=== PATIENT | female | born 1965 | race Two or more races ===

== ENCOUNTER 2017-08-09 19:19 | Inpatient (IN) | payer MEDICAID, OTHER ==
[~2017-08-09] VITALS: Ht 147.3 cm; Wt 58.1 kg
--- NOTE | 2017-08-09 19:19 | NUR ---
BRITTANY 102 FROM [facility] FOR MIDSTERNAL CP NONRADIATING S/P SYNCOPAL EPISODE. 162 ASA AND NITRO GIVEN EN ROUTE. VSS NAD A/OX4 ABLE TO MAKE NEEDS KNOWN. WILL CONTINUE TO MONITOR FOR ANY CHANEGS DURING THE SHIFT.
--- NOTE | 2017-08-09 19:20 | NUR ---
ER MD REEVES AT BEDSIDE
--- NOTE | 2017-08-09 19:41 | NUR ---
EKG AT BEDSIDE
[2017-08-09 19:44] LABS: BASOPHILS % (AUTO) 0.7 % (0.0-2.0); HEMATOCRIT 35 % (33-45); HEMOGLOBIN 12.1 g/dL (11.5-14.8); LYMPHOCYTES # (AUTO) 1.9 /CMM (0.8-4.8); LYMPHOCYTES % (AUTO) 39.2 % (20.0-44.0); MEAN CORPUSCULAR HEMOGLOBIN 31 PG (26.0-33.0); MEAN CORPUSCULAR HGB CONC 35 g/dl (31.0-36.0); MEAN CORPUSCULAR VOLUME 88 fL (82-100); MONOCYTES # (AUTO) 0.4 /CMM (0.1-1.30); MONOCYTES % (AUTO) 9.3 % (2.0-12.0); NEUTROPHILS # (AUTO) 2.5 /CMM (1.8-8.9); NEUTROPHILS % (AUTO) 49.8 % (43.0-81.0); PLATELET COUNT (AUTO) 88 /CMM (150-450); RDW COEFFICIENT OF VARIATION 13.9 (11.5-15.0); RED BLOOD CELL COUNT(AUTO) 3.94 MIL/uL (4.0-5.2); WHITE BLOOD COUNT (AUTO) 4.8 K/uL (4.3-11.0)
[2017-08-09 19:59] LABS: CALCIUM, SERUM 8.9 mg/dL (8.5-10.1); CARBON DIOXIDE 29 mmol/L (21-32); CHLORIDE 105 mmol/L (98-107); CREATININE 0.6 mg/dL (0.6-1.3); GLUCOSE 109 mg/dL (74-106); POTASSIUM 3.6 mmol/L (3.5-5.1); SODIUM SERUM 138 mmol/L (136-145); UREA NITROGEN, BLOOD 11 mg/dL (7-18)
[2017-08-09 20:02] LABS: INR 1.04 (0.85-1.15)
[2017-08-09 20:08] LABS: TROPONIN I < 0.017 ng/mL (0.00-0.056)
[2017-08-09] MEDS ORDERED: ASPIRIN 81 MG TAB.CHEW PO ONE (21:00)
[2017-08-09] MEDS ORDERED: ASPIRIN 81 MG TAB.CHEW ONE (21:03)
[2017-08-09] MEDS ORDERED: IV NS 0.9% 1,000 ML IV PRN (21:04)
[2017-08-09 21:14] LABS: BAND % (MANUAL) 1 % (0.0-5.0); LYMPHOCYTES % (MANUAL) 39 % (16-48); MONOCYTES % (MANUAL) 3 % (0-11.0); NEUTROPHILS % (MANUAL) 57 (42-76)
[2017-08-09] MEDS ORDERED: HYDROCODONE/APAP 5/325MG 1 EACH TABLET PO PRN (21:30)
[2017-08-09] MEDS ORDERED: ONDANSETRON HCL/PF 4 MG/2 ML VIAL IVP PRN (21:30)
[2017-08-09] MEDS ORDERED: ACETAMINOPHEN 325 MG TABLET PO PRN (21:30)
[2017-08-09] MEDS ORDERED: MAGNESIUM HYDROXIDE 30 ML UDC PO PRN (21:30)
[2017-08-09] MEDS ORDERED: Z GUARD REMEDY 2 OZ OINT TP PRN (21:30)
[2017-08-09] MEDS ORDERED: ZOLPIDEM TARTRATE 5 MG TABLET PO PRN (21:30)
[2017-08-09] MEDS ORDERED: ENOXAPARIN SODIUM 40 MG/0.4 ML DISP.SYRIN SQ SCH (21:30)
[2017-08-09] MEDS ORDERED: MAG HYDROX/AL HYDROX/SIMETH 30 ML UDC PO PRN (21:30)
[2017-08-09] MEDS ORDERED: ALPRAZOLAM 0.25 MG TABLET PO PRN (21:30)
[2017-08-09] MEDS ORDERED: MORPHINE SULFATE INJ 2 MG/ML DISP.SYRIN IV PRN (21:30)
--- NOTE | 2017-08-09 21:43 | NUR ---
MILLWRIGHT HELPER NEW ADMISSION NOTES RECEIVED PT FROM ER VIA GURNEY TO ROOM 316-1, ACCOMPANIED BY STAFF, A & O X 4, SPEAKS CONGOL[place]/PERSIAN. NO SOB, NO C/O CHEST PAIN NOTED. HAD C/O MILD BACK PAIN. V/S CHECKED & WNL. O2 SAT 97% @ RA. IN SEMI MEJIA POSITION. ON TELE MONITORING WITH SR 78. IV ACCESS TO L HAND, INTACT PATENT. BODY CHECK DONE, PHOTOS TAKEN. PT WAS CONCERNED ABOUT HER STUFF LEFT @ [facility] SINCE SHE WAS TRANSFERRED TO [facility] FROM [facility]. SHE CALLED THEM & SPOKE TO SOMEONE & WAS REASSURED AFTER THAT. HAD SNACK & TOLERATED WELL. ALL MED ORDERS REVIEWED WITH MD, NOTED & CARRIED OUT. ALL BELONGINGS ACCOUNTED FOR & DOCUMENTED BY BUYER AGENT. INSTRUCTED THE PT NOT TO GET OUT OF BED BY HERSELF TO PREVENT A FALL, VERBALIZED UNDERSTANDING. BSC @ BEDSIDE. ALL NEEDS MET. SR X 2 UP. BED ALARM ON. SAFETY MEASURES IN PLACE. PT STATES SHE WENT TO [facility] FROM HOME & HAS FAMILY BUT NOTES FROM [facility] SHOWS THAT SHE IS HOMELESS. CALL LIGHT WITHIN REACH. BED IN LOW LOCKED POSITION. WILL CONTINUE TO MONITOR CLOSELY.
[2017-08-09 22:00] VITALS: BP 158/86
--- NOTE | 2017-08-09 22:37 | NUR ---
HELD LOVENOX PT'S PLATELETS NOTED TO BE 88, DR LUNDBERG MADE AWARE & MD ORDERED TO HOLD THE DOSE TONIGHT . NO LOVENOX GIVEN TONIGHT AFTER THE ADMISSION.
[2017-08-10] VITALS: BP 158/86
--- NOTE | 2017-08-10 00:30 | NUR ---
SCIENCE PROFESSOR NOTE PT NOTED TO BE ASLEEP COMFORTABLY @ THIS TIME. NO GLENN NOTED. IN STABLE CONDITION.
--- NOTE | 2017-08-10 03:00 | NUR ---
MRSA SPECIMEN COLLECTED
--- NOTE | 2017-08-10 03:07 | NUR ---
PHYSICIAN RELATIONS SPECIALIST NOTE PT WOKE UP, USED THE TOILET & ASSISTED BACK TO BED. ASKED THE PT AGAIN FOR HER HOME ADDRESS BUT THIS TIME PT STATED SHE IS HOMELESS, [place]ETS. ALSO SHE ASKED FOR POSSIBLE LIVING RESOURCES. INFORMED HER THAT BRICK SETTER OPERATOR & ROD BUSTER WILL FOLLOW UP WITH HER IN AM.
[2017-08-10 04:00] VITALS: BP 158/95
[2017-08-10 04:30] VITALS: BP 141/83
[2017-08-10 06:24] LABS: BASOPHILS % (AUTO) 0.5 % (0.0-2.0); EOSINOPHILS % (AUTO) 1.9 % (0.0-6.0); HEMATOCRIT 36 % (33-45); HEMOGLOBIN 12.1 g/dL (11.5-14.8); LYMPHOCYTES # (AUTO) 1.8 /CMM (0.8-4.8); MEAN CORPUSCULAR HEMOGLOBIN 31 PG (26.0-33.0); MEAN CORPUSCULAR HGB CONC 34 g/dl (31.0-36.0); MEAN CORPUSCULAR VOLUME 90 fL (82-100); MONOCYTES # (AUTO) 0.4 /CMM (0.1-1.30); MONOCYTES % (AUTO) 9.5 % (2.0-12.0); NEUTROPHILS # (AUTO) 2.1 /CMM (1.8-8.9); NEUTROPHILS % (AUTO) 47.1 % (43.0-81.0); PLATELET COUNT (AUTO) 85 /CMM (150-450); RDW COEFFICIENT OF VARIATION 15.1 (11.5-15.0); RED BLOOD CELL COUNT(AUTO) 3.96 MIL/uL (4.0-5.2); WHITE BLOOD COUNT (AUTO) 4.5 K/uL (4.3-11.0)
[2017-08-10 06:48] LABS: TROPONIN I < 0.017 ng/mL (0.00-0.056)
[2017-08-10 06:51] LABS: CALCIUM, SERUM 8.9 mg/dL (8.5-10.1); CARBON DIOXIDE 24 mmol/L (21-32); CHLORIDE 107 mmol/L (98-107); CREATININE 0.6 mg/dL (0.6-1.3); GLUCOSE 78 mg/dL (74-106); PHOSPHORUS 4.5 mg/dL (2.5-4.9); POTASSIUM 3.9 mmol/L (3.5-5.1); SODIUM SERUM 139 mmol/L (136-145); UREA NITROGEN, BLOOD 15 mg/dL (7-18)
--- NOTE | 2017-08-10 06:53 | NUR ---
GIMP BUTTONHOLE MACHINE OPERATOR CLOSING NOTES PT SLEPT WELL @ NIGHT, A & O X 4, SPEAKS [place] ISLANDER/[place]EL[place]. NO SOB, NO C/O CHEST PAIN NOTED. HAD C/O MILD BACK PAIN. IN SEMI MEJIA POSITION. ON TELE MONITORING WITH SR 66. IV ACCESS TO L HAND, INTACT PATENT, RUNNING WITH IVF ORDERED. INSTRUCTED THE PT NOT TO GET OUT OF BED BY HERSELF TO PREVENT A FALL, VERBALIZED UNDERSTANDING. BSC @ BEDSIDE. ALL NEEDS MET. SR X 2 UP. BED ALARM ON. SAFETY MEASURES IN PLACE. CALL LIGHT WITHIN REACH. BED IN LOW LOCKED POSITION. WILL ENDORSE TO AM RN.
[2017-08-10 07:14] LABS: CHOLESTEROL 115 mg/dL (<200); HDL CHOLESTEROL 60 mg/dL (40-60); LDL 46 mg/dL (0-99); TRIGLYCERIDES 60 mg/dL (30-150)
[2017-08-10 08:00] VITALS: BP 144/79
--- NOTE | 2017-08-10 08:44 | NUR ---
DIRECTOR OF CONSERVATION NOTES PATIENT IN BED, AWAKE. BREAKFAST SERVED WITH GOOD APPETITE. SINUS RHYTHM HR 72 ON THE TELE MONITOR. IVC IN LEFT HAND WITH IVF NS INFUSING AT 75ML/HR. DENIES CHEST PAIN, CALL LIGHT WITHIN REACH. WILL CONT TO MONITOR.
--- NOTE | 2017-08-10 10:16 | NUR ---
Social service consult requested by Dr. Graff for history of mental health disorder/no transportation. Pt. is a 51 year old female who was admitted to [facility] for chest pain and syncope. SW met with pt. bedside. Pt. is alert and oriented x 4. Pt. is soft spoken and cooperative. Pt. states she lives with her mother on and off at [address] in [place]. Pt. states she chooses to leave home at times and is homeless then goes back home. Pt. has no source of income. Pt. was at [facility] prior to coming to [facility]. Pt. denies suicidal/homicidal ideations and visual/auditory hallucinations at this time. Pt. wants to Go back to [facility] to order picker her belongings and will go home from there. Pt. has a psychiatric diagnosis of Schizophrenia and Depression. Pt's current medications include Abilify and Celexa. Pt. states she does use drugs at times. When asked what kind of drugs. Pt. stated all kinds. Pt. consumes alcohol at times, mostly beer., Pt. states she smokes marijuana and cigarettes once in a while. Pt. has had two psychiatric hospitalizations. One was eighth years ago and the most recent one was at [facility]. REANNA to arrange transportation for pt. to go to [facility] located at [address] in [facility] to order picker her belongings. Pt. states she will take the bus from there to get home. No other social service needs are required at this time. SW is available, if needed. REANNA gave pt. a pair of sandals per her request since pt. did not have any shoes.
[2017-08-10 12:00] VITALS: BP 126/86
[2017-08-10 15:39] LABS: THYROID STIMULATING HORMONE 2.808 uIU/mL (0.358-3.74)
[2017-08-10 15:45] VITALS: BP 161/86
--- NOTE | 2017-08-10 18:29 | NUR ---
MS RN CLOSING NOTES PATIENT HAS BEEN CLEARED FOR DISCHARGE HOME BY ISMAEL WILSON. VS REMAINS STABLE, PATIENT DENIES CHEST PAIN DURING THE SHIFT. IVC IN LEFT HAND REMOVED, GAUZE APPLIED, NO BLEEDING NOTED. SKIN INTACT. AMBULATES WITH STEADY GAIT AND BALANCE. DISCHARGE INSTRUCTION GIVEN TO PATIENT, INSTRUCTED TO FOLLOW UP WITH HER PRIMARY CARE PHYSICIAN IN 1 WEEK, VERBALIZED UNDERSTANDING. BELONGINGS CHECKED AND SEND WITH THE PATIENT UPON DC. PATIENT LEFT HOSP IN STABLE CONDITION.
== END 2017-08-10 18:20 | disposition home or self-care (01) | DRG 203 ==
LOC: ER 19:21 → TELE 21:29
PROVIDERS: ADMIT Internal Medicine; ATTEND Internal Medicine
DX: M94.0 Chondrocostal junction syndrome [Tietze] (principal); F32.9 Major depressive disorder, single episode, unspecified; R55 Syncope and collapse; F41.9 Anxiety disorder, unspecified
CPT/HCPCS: 36415; 71045-TC; 80048-TC; 80061-TC; 83735-TC; 84100-TC; 84439-TC; 84443-TC; 84484-TC; 85025-TC; 85730-TC; 87081-TC; 93307-TC; A4606; J1650; J7030; Z7610